=== PATIENT | male | born 1975 | race African-American/Black ===

== ENCOUNTER 2023-10-08 02:06 | Emergency (ER) | payer OTHER ==
[~2023-10-08] VITALS: Ht 182.9 cm; Wt 72.6 kg
[2023-10-08 02:17] VITALS: BP 131/89; TEMP 98.6; O2SAT 98
== END 2023-10-08 03:33 | disposition home or self-care (01) ==
LOC: ER 02:21
DX: S01.01XD Laceration without foreign body of scalp, subsequent encounter (principal); X58.XXXD Exposure to other specified factors, subsequent encounter